=== PATIENT | female | born 1985 | race Hispanic/Latino ===

== ENCOUNTER 2017-02-02 08:15 | Emergency (ER) | payer SELFPAY ==
[~2017-02-02] VITALS: Ht 152.4 cm; Wt 58.1 kg
[~2017-02-02 08:15] MED LIST: CEPH500C PO
--- NOTE | 2017-02-02 09:00 | ED Back Pain ---
General Chief Complaint: Back Problems Stated Complaint: LOWER RIGHT BACK PAIN Nursing Triage Note: pt reports r lower back pain x 1 1/2 weeks. pt also reports she is about 6 weeks . Nursing Sepsis Screen: No Definite Risk Source of Information: Patient Exam Limitations: Language Barrier History of Present Illness Time Seen by Provider: 08:45 Initial Comments This 31-year-old female presents with right low back pain that she has had for about a week and a half. The patient's pain which is sharp in nature and moderate in severity radiates down the posterior aspect of her right leg. The patient however is primarily concerned about her most recent intrauterine . Her last menstrual period she relates was 5 weeks ago. She would like to ascertain that the baby is viable on ultrasound and have testing done. There's been no vaginal bleeding. The patient has not passed tissue. There has been no associated dysuria or frequency. Allergies and Home Medications Allergies Coded Allergies: No Known Drug Allergies (Unverified , 08/29/15) Home Medications No Active Prescriptions or Reported Meds Constitutional: No chills, No fever EENTM: no symptoms reported Respiratory: No cough Cardiovascular: No chest pain Gastrointestinal: No abdominal pain, No nausea, No vomiting Genitourinary: No dysuria, No frequency : Yes LMP: Dec 29, 2016 Musculoskeletal: see HPI, back pain (patient has back pain in the right S I area that radiates down the posterior aspect of her right leg.) Skin: No rash Psychiatric/Neurological: No Symptoms Reported Past Fzxfdet-[place] Hx Patient Social History Alcohol Use: Denies Use Recreational Drug Use: No Smoking Status: Never a Smoker Recent Foreign Travel: No Contact w/Someone Who Travel: No Recent Infectious Disease Expo: No Recent Hopitalizations: No Surgeries HX Surgeries: No Respiratory Hx Respiratory Disorders: No Cardiovascular Hx Cardiac Disorders: No Neurological Hx Neurological Disorders: No Reproductive System : Yes (pt unsure of due date. thinks 6 weeks preg) Hx : 3 Hx Para: 2 Hx Total # of Abortions (Spona: 0 Genitourinary Hx Genitourinary Disorders: No Gastrointestinal Hx Gastrointestinal Disorders: No Musculoskeletal Hx Musculoskeletal Disorders: No Endocrine Hx Endocrine Disorders: No HEENT HX ENT Disorders: No Cancer Hx Cancer: No Psychosocial Hx Psychiatric Problems: No Integumentary HX Skin/Integumentary Disorder: No Blood Transfusions Hx Blood Disorders: No Family Medical History Significant Family History: No Pertinent Family Hx Physical Exam Vital Signs Vital Sign - Last 12Hours 02/02/17 08:35 Temp 97.2 Pulse 72 Resp 18 B/P (MAP) 103/73 Pulse Ox 99 Capillary Refill : Less Than 3 Seconds General Appearance: No Apparent Distress, WD/WN HEENT: Normal ENT Inspection Neck: Normal Inspection Cardiovascular: Regular Rate, Rhythm, No Edema, Normal Peripheral Pulses Respiratory: Lungs Clear, Normal Breath Sounds Gastrointestinal: Normal Bowel Sounds, Non Tender, Soft Genital/Rectal: Normal Genital Exam, Normal Vaginal Exam, No Blood at Uretheral Meatus Back: No Vertebral Tenderness Extremity: Normal Inspection, Normal Range of Motion Neurologic/Psychiatric: Alert, Oriented x3, No Motor/Sensory Deficits Skin: Normal Color Progress/Results/Core Measures Results/Orders Lab Results Laboratory Tests Test 02/02/17 08:31 02/02/17 09:31 Range/Units Urine Color YELLOW Urine Clarity SLIGHTLY CLOUDY Urine pH 7 5-9 Urine Specific [place] 1.015 L 1.016-1.022 Urine Protein NEGATIVE NEGATIVE Urine Glucose (UA) NEGATIVE NEGATIVE Urine Ketones NEGATIVE NEGATIVE Urine Nitrite NEGATIVE NEGATIVE Urine Bilirubin NEGATIVE NEGATIVE Urine Urobilinogen NORMAL NORMAL MG/DL Urine Leukocyte Esterase 3+ H NEGATIVE Urine RBC (Auto) NEGATIVE NEGATIVE Urine RBC NONE /HPF Urine WBC 5-10 H /HPF Urine Squamous Epithelial Cells 25-50 H /HPF Urine Crystals NONE /LPF Urine Bacteria MODERATE H /HPF Urine Casts NONE /LPF Urine Mucus NEGATIVE /LPF Urine Culture Indicated YES Human Chorionic Gonadotropin, Quant 4291 H <5 MIU/ML My Orders Orders - MATTHEW PATHAK MD Ua Culture If Indicated (02/02/17 09:04) Abo Rh Type (02/02/17 09:04) Hcg,Quantitative (02/02/17 09:04) Acetaminophen Tablet (Tylenol Tablet) (02/02/17 09:15) Urine Culture (02/02/17 08:31) Us Ob<14 Wks Sngle W/Transvag (02/02/17 09:04) Medications Given in ED Current Medications Medications Dose Ordered Sig/Kylie Route Start Time Stop Time Status Last Admin Dose Admin Acetaminophen 1,000 mg ONCE ONCE PO 02/02/17 09:15 02/02/17 09:16 DC 02/02/17 09:14 1,000 MG Vital Signs/I&O Vital Sign - Last 12Hours 02/02/17 08:35 Temp 97.2 Pulse 72 Resp 18 B/P (MAP) 103/73 Pulse Ox 99 Blood Pressure Mean: 83 Progress Note : Time: 10:27 Progress Note The patient's pelvic exam was unremarkable. Her quantitative hCG was approximately 4500 consistent with her dates of 4-5 weeks. The patient's urinalysis was consistent with UTI. A culture has been initiated. I discussed the findings with the patient. We will initiate Macrobid for her urinary tract infection and ask her to follow-up with [facility] for further evaluation. She was invited to return the emergency Department if any further problems or questions. 1030 a.m. Patient's ultrasound was consistent with a 5 week intrauterine . Hemorrhagic cyst on the left was noted. Departure Impression Impression: Primary Impression: Back pain Qualified Codes: M54.41 - Lumbago with sciatica, right side Additional Impressions: Sciatica Qualified Codes: M54.31 - Sciatica, right side Intrauterine UTI (urinary tract infection) Qualified Codes: N30.00 - Acute cystitis without hematuria Disposition: 01 HOME, SELF-CARE Condition: Improved Departure-Patient Inst. Decision time for Depature: 10:39 Referrals: MARGARITA KABA MD Patient Instructions: Radiculopathy (DC) Add. Discharge Instructions: Tylenol for pain as prescribed. Close follow-up with Dr. Kaba. Come back for any problems or questions. Heat and/or ice to the low back for symptomatic relief. Macrobid for UTI. All discharge instructions reviewed with patient and/or family. Voiced understanding. Scripts No Active Prescriptions or Reported Meds MATTHEW PATHAK MD Feb 02, 2017 09:00
[2017-02-02] MEDS ORDERED: ACETAMINOPHEN 500 MG TAB (TYLENOL) PO ONE (09:15)
[2017-02-02 09:27] LABS: BILIRUBIN,URINE NEGATIVE (NEGATIVE); KETONES,URINE NEGATIVE (NEGATIVE); LEUKOCYTE ESTERASE ,URINE 3+ (NEGATIVE); NITRITE,URINE NEGATIVE (NEGATIVE); PH,URINE 7 (5-9); PROTEIN,URINE NEGATIVE (NEGATIVE); UROBILINOGEN,URINE NORMAL (NORMAL)
[2017-02-02 09:36] LABS: SQUAMOUS EPITHELIAL CELL,UR 25-50 /HPF
[2017-02-02 10:54] VITALS: BP 126/78
--- NOTE | 2017-02-02 11:13 | Diagnostic Imaging Report ---
INDICATION: Lower back pain. COMPARISON: None. DISCUSSION: Transabdominal and transvaginal sonographic evaluation of the pelvis was performed. The uterus is normal in echotexture and size. There is a small gestational sac with a small yolk sac present within the endometrial canal which correlates with a gestational age of 5 weeks 2 days. No pole or heart activity is yet identified. The ovaries appear normal in echotexture and size bilaterally with normal color Doppler blood flow. No abnormal adnexal mass or fluid. EDC by today's ultrasound is 10/03/2017. Mean sac diameter measures 0.67 cm. IMPRESSION: Early intrauterine at 5 weeks 2 days by sonographic measurements. No pole yet visualized. Recommend continued clinical correlation and sonographic followup as indicated. Dictated by: Dictated on workstation # [id number]
--- OUTSIDE RECORDS SUMMARY | 2017-03-08 05:40 | XMS REPORT | Continuity of Care Document ---
Author Author [facility] Organization [facility] Address Unknown Phone Unavailable Care Team Providers Care Rehabilitation Counselor Name Role Phone NO, LOCAL PHYSICIAN PP Unavailable Insurance Providers Payer Name Policy Number Subscriber Name Relationship Self Pay Aileen Malik 01 Self / Same As Patient Advance Directives Directive Response Recorded Date Advance Directives N 03/23/13 5:40pm Problems No Known Problems or Medical conditions. Social History History Response Recorded Date/Time Alcohol Use Denies Use 03/23/13 5:40pm Recreational Drug Use N 03/23/13 5:40pm Allergies, Adverse Reactions, Alerts Allergen Type Severity Reaction Last Updated No Known Drug Allergies 03/23/13 Medications Medication Dose Units Route Sig Qty Days Cephalexin Monohydrate (Cephalexin) 1 Each PO QID 7 Response Recorded Date/Time Status not known Unknown Results No Known Relevant Diagnostic Tests, Laboratory Data and/or Discharge Summary. Encounters Encounter Location Date/Time Registered Emergency [facility] 03/23/13 5:24pm
== END 2017-02-02 10:54 | disposition home or self-care (01) ==
LOC: EDUNIT# 08:15 → ER 08:21
DX: O23.41 Unspecified infection of urinary tract in pregnancy, first trimester (principal); Z3A.01 Less than 8 weeks gestation of pregnancy; M54.41 Lumbago with sciatica, right side
CPT/HCPCS: 36415; 76801; 76817; 81000; 84702; 86900; 86901; 87070; 87088; 87210; 87491; 87591; 99284

== ENCOUNTER → 2017-04-02 | Outpatient (CLI) | payer OTHER ==
--- NOTE | 2017-04-02 19:48 | Diagnostic Imaging Report ---
PROCEDURE: US OB SINGLE FETUS <14 WKS. TECHNIQUE: Multiple real-time grayscale images were obtained over the gravid uterus in various projections. INDICATION: Dating. FINDINGS: There is an intrauterine with a membreno fetus. The heart rate is 161 beats per minutes. Placental implantation is anterior. The growth parameters are: Biparietal diameter: 14 weeks and 4 days. Head circumference: 14 weeks and 3 days. Abdominal circumference: 14 weeks and 0 day. Femur length: 13 weeks and 2 days. These average at: 14 weeks and 1 day. JAX is 09/30/2017. IMPRESSION: Live single intrauterine . JAX is 09/30/2017 Dictated by: Dictated on workstation # [id number]
== END ==
LOC: RAD 12:21
PROVIDERS: ATTEND Family Medicine
DX: Z34.82 Encounter for supervision of other normal pregnancy, second trimester (principal); Z3A.14 14 weeks gestation of pregnancy
CPT/HCPCS: 76801

== ENCOUNTER → 2017-05-21 | Outpatient (CLI) | payer OTHER ==
--- NOTE | 2017-05-21 09:58 | Diagnostic Imaging Report ---
INDICATION: survey. TECHNIQUE: Multiple real-time grayscale images were obtained over the gravid uterus. COMPARISON: None. FINDINGS: There is a single living intrauterine in cephalic presentation. There is normal volume of amniotic fluid. Placenta is anterior. There is no previa. The heart rate is 160 beats per minute. The anatomical survey is unremarkable. The biometry correlates with gestational age of 20 weeks 6 days. Biometrical measurements are as follows: Biparietal 5.0 cm, age 21 weeks 1 days. Head circumference 17.3 cm, age 19 weeks 6 days. Abdominal circumference 16.2 cm, age 21 weeks 2 days. Femur length 3.5 cm, age 21 weeks 1 days. Sonographic estimate age: 20 weeks 6 days. Sonographic estimated date of delivery: 10/02/17. Estimated Weight: 396 gm (+/- 58 gm). LMP percentile: 39%. heart rate: 160 beats per minute. number: 1 of 1. IMPRESSION: Single living intrauterine with sonographically estimated gestational age of 20 weeks 6 days and estimated date of confinement of October 02, 2017. Dictated by: Dictated on workstation # [id number]
== END ==
LOC: RAD 08:43
PROVIDERS: ATTEND Family Medicine
DX: Z36 Encounter for antenatal screening of mother (principal); Z3A.20 20 weeks gestation of pregnancy
CPT/HCPCS: 76805

== ENCOUNTER 2017-10-01 12:34 | Outpatient (CLI) | payer OTHER ==
[~2017-10-01] VITALS: Ht 147.3 cm; Wt 74.4 kg
[2017-10-01 12:38] VITALS: BP 120/74
[2017-10-01 13:26] LABS: BILIRUBIN,URINE NEGATIVE (NEGATIVE); KETONES,URINE NEGATIVE (NEGATIVE); LEUKOCYTE ESTERASE ,URINE 1+ (NEGATIVE); NITRITE,URINE NEGATIVE (NEGATIVE); PH,URINE 7 (5-9); PROTEIN,URINE NEGATIVE (NEGATIVE); UROBILINOGEN,URINE NORMAL (NORMAL)
[2017-10-01] MEDS ORDERED: PREN1TAB86 PO (13:28)
[2017-10-01] MEDS ORDERED: INFLUENZA TRIvalent 2017-2018 0.5 ML/45 MCG SYR IM ONE (13:45)
[2017-10-01 14:00] VITALS: BP 114/72
[2017-10-01 15:30] VITALS: BP 114/72
--- NOTE | 2017-10-02 11:20 | Physician Query-Final Dx ---
CHLOE DESOUZA 10/02/17 1120: Clinic Account Progress/Dx Physician Query: Please give diagnosis Date of Service Oct 01, 2017 at 12:34 DARRICK CHAVEZ DO 10/14/17 1527: Clinic Account Progress/Dx DIAGNOSIS: Diagnosis 40 week GA vaginal pressure, vaginal discharge CHLOE DESOUZA Oct 02, 2017 11:20 DARRICK CHAVEZ DO Oct 14, 2017 15:27
[2017-10-04] MEDS ORDERED: HYDR-3812 PO (10:59)
[2017-10-04] MEDS ORDERED: FERR-74 PO (10:59)
[2017-10-04] MEDS ORDERED: DOCU100C37 PO (10:59)
[2017-10-04] MEDS ORDERED: IBUP-1773 PO (10:59)
[2017-10-04] MEDS ORDERED: CEFD300C3 PO (15:53)
== END 2017-10-01 15:30 | disposition home or self-care (01) ==
LOC: WSo 12:34 → LDRP 12:36 → WSo 15:30
PROVIDERS: ATTEND Family Medicine
DX: O99.89 Other specified diseases and conditions complicating pregnancy, childbirth and the puerperium (principal); N89.8 Other specified noninflammatory disorders of vagina; Z3A.40 40 weeks gestation of pregnancy; Z23 Encounter for immunization
CPT/HCPCS: 81000; 90471; 99214

== ENCOUNTER 2017-10-02 17:20 | Inpatient (IN) | payer SELFPAY ==
[2017-10-02] VITALS (27 sets, daily range): BP systolic 105–145; BP diastolic 56–101
[~2017-10-02] VITALS: Ht 147.3 cm; Wt 74.4 kg
[~2017-10-02 17:20] MED LIST changes: +PREN1TAB86 PO
[2017-10-02] MEDS ORDERED: MINERAL OIL CONCENTRATE 99.9% 15 ML UDC TOP SCH (17:45)
[2017-10-02] MEDS ORDERED: D5 LR IV SOLUTION 1,000 ML IV SCH (17:45)
[2017-10-02] MEDS ORDERED: D5 LR IV SOLUTION 1,000 ML IV ONE (17:51)
[2017-10-02 18:06] LABS: BILIRUBIN,URINE NEGATIVE (NEGATIVE); KETONES,URINE NEGATIVE (NEGATIVE); LEUKOCYTE ESTERASE ,URINE 3+ (NEGATIVE); NITRITE,URINE NEGATIVE (NEGATIVE); PH,URINE 6.5 (5-9); PROTEIN,URINE 2+ (NEGATIVE); UROBILINOGEN,URINE NORMAL (NORMAL)
[2017-10-02 18:17] LABS: SQUAMOUS EPITHELIAL CELL,UR 25-50 /HPF; WBC,URINE 50-100 /HPF
[2017-10-02 18:21] LABS: BASOPHILS % (AUTO) 0 % (0-10); EOSINOPHILS # (AUTO) 0.1 10^3/uL (0.0-0.3); EOSINOPHILS % (AUTO) 1 % (0-10); LYMPHOCYTES # (AUTO) 1.5 X 10^3 (1.0-4.0); LYMPHOCYTES % (AUTO) 11 % (12-44); MEAN CORPUSCULAR HEMOGLOBIN 22 PG (25-34); MEAN CORPUSCULAR HGB CONC 32 G/DL (32-36); MEAN CORPUSCULAR VOLUME 71 FL (80-99); MONOCYTES # (AUTO) 1.3 X 10^3 (0.0-1.0); MONOCYTES % (AUTO) 10 % (0-12); NEUTROPHILS # (AUTO) 10.2 X 10^3 (1.8-7.8); NEUTROPHILS % (AUTO) 78 % (42-75); PLATELET COUNT 407 10^3/uL (130-400); RED BLOOD COUNT 4.04 10^6/uL (4.35-5.85); RED CELL DISTRIBUTION WIDTH 17.7 % (10.0-14.5)
--- NOTE | 2017-10-02 20:17 | History & Physical-OB ---
OB - Chief Complaint & HPI Date/Time Date of Admission: Date of Admission: Oct 02, 2017 at 5:48 pm Time Seen by Provider: 19:50 Chief Complaint/History OB-Reason for Admission/Chief: Onset of Labor Hx : 5 Hx Para: 2021 Expected Date of Delivery: Sep 30, 2016 Gestational Age in Weeks: 40 Gestational Age in Days: 3 History of Labs O negative, antibody negative, RNI, GC/Chlamydia neg. HIV/HepB/RPR NR. 1 hour glucola normal. GBS neg. Allergies and Home Medications Allergies Coded Allergies: No Known Drug Allergies (Unverified , 08/29/15) Home Medications Vit W-Ca,Fe,FA(<1 mg) 1 Each Tablet, 1 EACH PO DAILY, (Reported) OB - History Hx of Present Care: Yes Ultrasounds: Normal mid trimester US Obstetrical Complications: None Medical Complications: None Information Induced Hypertension: No Maternal Gestational Diabetes: No Hemorrhage: No Obstetrical History Hx : 5 Hx Para: 2 Hx # Term Pregnancies: 2 Hx # Pregnancies: 0 Number of Living Children: 2 Hx Total # of Abortions (Spona: 2 Hx Multiple Gestation: No Hx Ectopic : No Hx Stillbirth: No Hx Complication: No Hx Induced Hypertens: No Hx Maternal Gestational Diabet: No Hx Hemorrhage: No Delivery History Hx Dystocia: No Hx Forceps Assisted Delivery: No Hx Vacuum Extraction Assisted: No Hx Placenta Abnormality: No Hx Distress: No Hx Large For Gestational Age I: No Hx Small for Gestational Age I: No Hx Section: No Hx Vaginal Delivery Post C-Sec: No Hx Blood Disorders: No Adverse Rxn to Tranfusion: No Patient Past Medical History PMHx: Denies Social History/Family History HIV/AIDS: No Recent Infectious Disease Expo: No Sexually Transmitted Disease: No Alcohol Use: Denies Use Recreational Drug Use: No Smoking Cessation: Never smoker Immunizations Tetanus Booster (TDap): Less than 5yrs (07/28/17) Date of Influenza Vaccine: Sep 29, 2017 Rubella: not immune RPR/VDRL: Negative GBS Status: Negative HBsAG: Negative OB - Admission Exam Physical Exam Vitals: Vital Signs 10/02/17 10/02/17 17:21 19:15 Temp 98.4 Pulse 89 Resp 18 B/P (MAP) 125/79 (94) O2 Delivery Room Air HEENT: NCAT Abdomen: Gravid Extremities: Normal Cervical Dilatation: 7cm Effacement: Other (90) Station: 0 Membranes: Intact Accelerations: No Accelerations Decelerations: No Decelerations Director Of Recreation Therapy Variability: Minimal (3-5) Contractions on Admission: < 5 Minutes Apart Date/Time Contractions Began;: 10/01 around noon Intensity: Firm Labs Laboratory Tests Test 10/02/17 17:50 10/02/17 18:05 Range/Units Urine Color YELLOW Urine Clarity SLIGHTLY CLOUDY Urine pH 6.5 5-9 Urine Specific [place] 1.015 L 1.016-1.022 Urine Protein 2+ H NEGATIVE Urine Glucose (UA) NEGATIVE NEGATIVE Urine Ketones NEGATIVE NEGATIVE Urine Nitrite NEGATIVE NEGATIVE Urine Bilirubin NEGATIVE NEGATIVE Urine Urobilinogen NORMAL NORMAL MG/DL Urine Leukocyte Esterase 3+ H NEGATIVE Urine RBC (Auto) 2+ H NEGATIVE Urine RBC 5-10 H /HPF Urine WBC 50-100 H /HPF Urine Squamous Epithelial Cells 25-50 H /HPF Urine Crystals NONE /LPF Urine Bacteria MODERATE H /HPF Urine Casts NONE /LPF Urine Mucus NEGATIVE /LPF Urine Culture Indicated YES White Blood Count 13.0 H 4.3-11.0 10^3/uL Red Blood Count 4.04 L 4.35-5.85 10^6/uL Hemoglobin 9.0 L 11.5-16.0 G/DL Hematocrit 29 L 35-52 % Mean Corpuscular Volume 71 L 80-99 FL Mean Corpuscular Hemoglobin 22 L 25-34 PG Mean Corpuscular Hemoglobin Concent 32 32-36 G/DL Red Cell Distribution Width 17.7 H 10.0-14.5 % Platelet Count 407 H 130-400 10^3/uL Mean Platelet Volume 10.0 7.4-10.4 FL Neutrophils (%) (Auto) 78 H 42-75 % Lymphocytes (%) (Auto) 11 L 12-44 % Monocytes (%) (Auto) 10 0-12 % Eosinophils (%) (Auto) 1 0-10 % Basophils (%) (Auto) 0 0-10 % Neutrophils # (Auto) 10.2 H 1.8-7.8 X 10^3 Lymphocytes # (Auto) 1.5 1.0-4.0 X 10^3 Monocytes # (Auto) 1.3 H 0.0-1.0 X 10^3 Eosinophils # (Auto) 0.1 0.0-0.3 10^3/uL Basophils # (Auto) 0.0 0.0-0.1 10^3/uL OB - Assessment/Plan/Diagnosis Assessment Assessment: active labor Plan Plan: Expectant Management Other Plan heart rate tracing category II- minimal variability with a few periods of essentially absent variability but also some periods with moderate variability. No accelerations, but also no decelerations. Borderline tachycardia with no maternal fever. Monitor closely, discussed with patient. Copy Copies To 1: HERRERA CORNEJO MD, BETHANY N MD Oct 02, 2017 8:17 pm
[2017-10-02] MEDS ORDERED: SUFENTA 0.6MCG/ML BUPIVA 0.125 100 ML ONE (20:40)
[2017-10-02] MEDS ORDERED: fentaNYL INJECTION 100 MCG/2 ML AMP ONE (20:47)
[2017-10-02] MEDS ORDERED: BUPIVACAINE 0.25% 30 ML (SENSORCAINE) VIAL ONE (21:19)
[2017-10-02] MEDS ORDERED: LIDOCAINE PF 2% 5 ML (XYLOCAINE) VIAL ONE (21:19)
[2017-10-02] MEDS ORDERED: MEPERIDINE (DEMEROL) INJ 50 MG/ML IVP PRN (21:30)
[2017-10-02] MEDS ORDERED: morphine INJ 10 MG/ML 1ML (SYR OR VIAL) IVP PRN (21:30)
--- NOTE | 2017-10-02 21:33 | Labor Progress Note ---
Labor Progress Note Labor Progress Note Date Seen by Provider: Oct 02, 2017 Time Seen by Provider: 21:15 Subjective: Pt starting to feel some pain relief from epidural. Objective: Cervical exam: /0 Consistency: soft Position: mid Presentation: vertex heart tones: 160 beats per minute, minimal variability, no decels Assessment/Plan: Aileen Fraga is a (32 /Para 5 / 2,Gestational Age (wks)40 here in spontaneous labor. TOCO AROM done with return of meconium stained fluid at 2019, FSE placed for closer monitoring due to minimal variability Anesthesia: epidural Anticipate vaginal delivery. Vitals - Labs Vital Signs - I&O Vital Signs Date Time Temp Pulse Resp B/P (MAP) Pulse Ox O2 Delivery O2 Flow Rate FiO2 10/02/17 19:15 89 18 125/79 (94) Room Air 10/02/17 17:21 98.4 102 20 122/79 (93) Room Air Labs Laboratory Tests 10/02/17 17:50: Urine Color YELLOW, Urine Clarity SLIGHTLY CLOUDY, Urine pH 6.5, Urine Specific [place] 1.015L, Urine Protein 2+H, Urine Glucose (UA) NEGATIVE, Urine Ketones NEGATIVE, Urine Nitrite NEGATIVE, Urine Bilirubin NEGATIVE, Urine Urobilinogen NORMAL, Urine Leukocyte Esterase 3+H, Urine RBC (Auto) 2+H, Urine RBC 5-10H, Urine WBC 50-100H, Urine Squamous Epithelial Cells 25-50H, Urine Crystals NONE, Urine Bacteria MODERATEH, Urine Casts NONE, Urine Mucus NEGATIVE, Urine Culture Indicated YES 10/02/17 18:05: White Blood Count 13.0H, Red Blood Count 4.04L, Hemoglobin 9.0L, Hematocrit 29L , Mean Corpuscular Volume 71L, Mean Corpuscular Hemoglobin 22L, Mean Corpuscular Hemoglobin Concent 32, Red Cell Distribution Width 17.7H, Platelet Count 407H, Mean Platelet Volume 10.0, Neutrophils (%) (Auto) 78H, Lymphocytes ( %) (Auto) 11L, Monocytes (%) (Auto) 10, Eosinophils (%) (Auto) 1, Basophils (%) (Auto) 0, Neutrophils # (Auto) 10.2H, Lymphocytes # (Auto) 1.5, Monocytes # ( Auto) 1.3H, Eosinophils # (Auto) 0.1, Basophils # (Auto) 0.0 MOMO WHITTAKER MD Oct 02, 2017 9:33 pm
[2017-10-02] MEDS ORDERED: CATHETER FLUSH 10 ML SYR IV SCH (22:00)
[2017-10-02] MEDS ORDERED: OXYTOCIN/NORMAL SALINE 500 ML IV ONE (22:32)
[2017-10-03] VITALS (20 sets, daily range): BP systolic 107–147; BP diastolic 64–88
[2017-10-03] MEDS: OXYTOCIN/NORMAL SALINE 500 ML IV SCH ×2 (00:20→02:48)
[2017-10-03] MEDS ORDERED: fentaNYL INJECTION 100 MCG/2 ML AMP IVP ONE (02:30)
[2017-10-03] MEDS ORDERED: fentaNYL INJECTION 100 MCG/2 ML AMP ONE (02:30)
--- NOTE | 2017-10-03 03:12 | OB Labor & Delivery Record ---
Vag Delivery Note Vag Delivery Note Date of Delivery: 10/03/17 Preoperative Diagnosis: Aileen Fraga is a (31 /Para 5 / 2, Gestational Age (wks)40with 3 days Postoperative Diagnosis: Same Surgeon: MOMO WHITTAKER Anesthesia: Epidural Delivery Type: spontaneous vaginal delivery Findings: Viable female infant, apgars 8/9, weight 7#0 Lacerations: first degree perineal Intact placenta with 3 vessel cord. No nuchal cord, body cord or shoulder dystocia Estimated Blood Loss: 400 ml Complications: None Condition: Stable Description of Procedure: The patient is a 32 yo G5 now P3023 who presented in active labor at 40w2d. She was admitted and informed consent was obtained. Her labor course was remarkable for protracted course, meconium stained fluid, heart rate with poor variability. She progressed to complete dilatation and began to push. She was then set up for delivery. The infant's head was delivered atraumatically in the YANELI position. The shoulders and remainder of the 's body were then delivered without difficulty. Upon delivery, the infant was vigorous and was placed on maternal abdomen. After a brief delay the cord was doubly clamped and cut and the infant was handed off to the pediatric staff. After 30 minutes and administration of pitocin and continuous traction on placenta, it had not delivered spontaneously. With epidural still in place, a dose of fentanyl 25 mcg IV was given and manual extraction of placenta performed with successful delivery of an intact placenta with 3-vessel cord via [place] and there was found to be minimal bleeding.~ Vigorous fundal massage was performed and the fundus was found to be firm. IV oxytocin was given. Examination of the vagina and perineum revealed a first degree perineal laceration repaired with one simple interrupted 3-0 rapide. Following the repair , sponge, instrument and needle counts were correct. A dose of ampicillin and gentamicin were ordered for prophylaxis due to manual extraction of placenta. Mom and baby were both in stable condition in the labor suite. Vitals - Labs Vital Signs - I&O Vital Signs Date Time Temp Pulse Resp B/P (MAP) Pulse Ox O2 Delivery O2 Flow Rate FiO2 10/02/17 20:00 97.5 92 18 120/72 (88) Room Air 10/02/17 19:15 89 18 125/79 (94) Room Air 10/02/17 17:21 98.4 102 20 122/79 (93) Room Air Labs Laboratory Tests 10/02/17 17:50: Urine Color YELLOW, Urine Clarity SLIGHTLY CLOUDY, Urine pH 6.5, Urine Specific [place] 1.015L, Urine Protein 2+H, Urine Glucose (UA) NEGATIVE, Urine Ketones NEGATIVE, Urine Nitrite NEGATIVE, Urine Bilirubin NEGATIVE, Urine Urobilinogen NORMAL, Urine Leukocyte Esterase 3+H, Urine RBC (Auto) 2+H, Urine RBC 5-10H, Urine WBC 50-100H, Urine Squamous Epithelial Cells 25-50H, Urine Crystals NONE, Urine Bacteria MODERATEH, Urine Casts NONE, Urine Mucus NEGATIVE, Urine Culture Indicated YES 10/02/17 18:05: White Blood Count 13.0H, Red Blood Count 4.04L, Hemoglobin 9.0L, Hematocrit 29L , Mean Corpuscular Volume 71L, Mean Corpuscular Hemoglobin 22L, Mean Corpuscular Hemoglobin Concent 32, Red Cell Distribution Width 17.7H, Platelet Count 407H, Mean Platelet Volume 10.0, Neutrophils (%) (Auto) 78H, Lymphocytes ( %) (Auto) 11L, Monocytes (%) (Auto) 10, Eosinophils (%) (Auto) 1, Basophils (%) (Auto) 0, Neutrophils # (Auto) 10.2H, Lymphocytes # (Auto) 1.5, Monocytes # ( Auto) 1.3H, Eosinophils # (Auto) 0.1, Basophils # (Auto) 0.0 MOMO WHITTAKER MD Oct 03, 2017 3:11 am
[2017-10-03] MEDS ORDERED: GENTAMICIN INJ (FOR COMPOUND) 120 MG in NS (IVPB) 100 ML IV ONE (03:15)
[2017-10-03] MEDS ORDERED: AMPICILLIN INJECTION 2,000 MG in NS (IVPB) 50 ML IV ONE (03:15)
[2017-10-03] MEDS ORDERED: GENTAMICIN 40 MG/ML 2 ML INJ SDV ONE (03:21)
[2017-10-03] MEDS ORDERED: NS (IVPB) 100 ML ONE (03:47)
[2017-10-03] MEDS ORDERED: OXYTOCIN/NORMAL SALINE 500 ML IV SCH (04:07)
[2017-10-03] MEDS ORDERED: TETANUS,DIPTH,PERTUSS P/F (BOOSTRIX) 0.5 ML VIAL IM ONE (04:15)
[2017-10-03] MEDS ORDERED: MEASLES,MUMPS,RUBELLA 1 EA INJ SQ ONE (04:15)
[2017-10-03] MEDS ORDERED: WITCH HAZEL(TUCKS) 40 EA JAR TOP PRN (04:15)
[2017-10-03] MEDS ORDERED: BENZOCAINE/MENTHOL (DERMOPLAST) 56 ML CAN TP PRN (04:15)
[2017-10-03] MEDS: IBUPROFEN 600 MG (MOTRIN) TAB PO SCH ×4 (05:09→23:58)
[2017-10-03 06:55] LABS: BASOPHILS % (AUTO) 0 % (0-10); EOSINOPHILS % (AUTO) 0 % (0-10); LYMPHOCYTES # (AUTO) 1.4 X 10^3 (1.0-4.0); LYMPHOCYTES % (AUTO) 6 % (12-44); MEAN CORPUSCULAR HEMOGLOBIN 22 PG (25-34); MEAN CORPUSCULAR HGB CONC 31 G/DL (32-36); MEAN CORPUSCULAR VOLUME 72 FL (80-99); MEAN PLATELET VOLUME 9.7 FL (7.4-10.4); MONOCYTES # (AUTO) 2.1 X 10^3 (0.0-1.0); MONOCYTES % (AUTO) 9 % (0-12); NEUTROPHILS # (AUTO) 20.6 X 10^3 (1.8-7.8); NEUTROPHILS % (AUTO) 85 % (42-75); PLATELET COUNT 347 10^3/uL (130-400); RED BLOOD COUNT 3.17 10^6/uL (4.35-5.85); RED CELL DISTRIBUTION WIDTH 17.5 % (10.0-14.5); WHITE BLOOD COUNT 24.2 10^3/uL (4.3-11.0)
[2017-10-03] MEDS: DOCUSATE SODIUM 100 MG (COLACE) CAP PO SCH ×2 (09:42→22:08)
[2017-10-03] MEDS: FERROUS SULF 325 MG (IRON) TAB PO SCH (09:42)
[2017-10-03] MEDS: PRENATAL VITAMIN 1 EA TAB PO SCH (09:42)
[2017-10-03] MEDS: HYDROcodone/APAP 5 MG/325 MG (LORTAB) TAB PO PRN ×3 (09:43→23:59)
--- NOTE | 2017-10-03 10:52 | Anesthesia-Regional Post-Op ---
Regional Patient Condition Mental Status: Alert, Oriented x3 Circulation: Same as Pre-Op Headache: Absent Sensation: Full Recovery Motor Block: Absent Post Op Complications Complications None Follow Up Care/Instructions Patient Instructions None needed. Anesthesia/Patient Condition Patient is doing well, no complaints, stable vital signs, no apparent adverse anesthesia problems. No complications reported per nursing. STEVE WALTER CRNA Oct 03, 2017 10:52
[2017-10-04 02:23] VITALS: BP 105/70
[2017-10-04] MEDS: CATHETER FLUSH 10 ML SYR IV SCH ×2 (02:26→06:18)
[2017-10-04] MEDS: HYDROcodone/APAP 5 MG/325 MG (LORTAB) TAB PO PRN (06:18)
[2017-10-04] MEDS: IBUPROFEN 600 MG (MOTRIN) TAB PO SCH ×2 (06:18→12:57)
[2017-10-04 06:43] LABS: BASOPHILS % (AUTO) 0 % (0-10); EOSINOPHILS # (AUTO) 0.2 10^3/uL (0.0-0.3); EOSINOPHILS % (AUTO) 1 % (0-10); LYMPHOCYTES # (AUTO) 2.9 X 10^3 (1.0-4.0); LYMPHOCYTES % (AUTO) 18 % (12-44); MEAN CORPUSCULAR HEMOGLOBIN 22 PG (25-34); MEAN CORPUSCULAR HGB CONC 30 G/DL (32-36); MEAN CORPUSCULAR VOLUME 72 FL (80-99); MEAN PLATELET VOLUME 9.7 FL (7.4-10.4); MONOCYTES # (AUTO) 1.1 X 10^3 (0.0-1.0); MONOCYTES % (AUTO) 7 % (0-12); NEUTROPHILS # (AUTO) 11.9 X 10^3 (1.8-7.8); NEUTROPHILS % (AUTO) 74 % (42-75); PLATELET COUNT 349 10^3/uL (130-400); RED CELL DISTRIBUTION WIDTH 17.8 % (10.0-14.5); WHITE BLOOD COUNT 16.1 10^3/uL (4.3-11.0)
[2017-10-04] MEDS: DOCUSATE SODIUM 100 MG (COLACE) CAP PO SCH (09:39)
[2017-10-04] MEDS: PRENATAL VITAMIN 1 EA TAB PO SCH (09:39)
[2017-10-04] MEDS: FERROUS SULF 325 MG (IRON) TAB PO SCH (09:39)
[2017-10-04 09:56] VITALS: BP 104/68
[2017-10-04] MEDS ORDERED: HYDR-3812 PO (10:59)
[2017-10-04] MEDS ORDERED: FERR-74 PO (10:59)
[2017-10-04] MEDS ORDERED: IBUP-1773 PO (10:59)
[2017-10-04] MEDS ORDERED: DOCU100C37 PO (10:59)
[2017-10-04] MEDS ORDERED: CEFD300C3 PO (15:53)
--- NOTE | 2017-10-04 15:59 | Discharge Summary ---
Diagnosis/Chief Complaint Date of Admission Oct 02, 2017 at 5:48 pm Date of Discharge Oct 04, 2017 Admission Diagnosis Admission Diagnosis Active labor at 40 weeks gestation O negative blood type Rubella non-immune Discharge Diagnosis s/p Spontaneous vaginal delivery Manual extraction of placenta anemia Proteus UTI O negative blood type Rubella non-immune Chief Complaint/HPI Chief Complaint/HPI 32 yo G5 now P3023 presented to L&D at 40 weeks gestation with regular contractions, found to be in active labor. Discharge Summary-Simple/Stand Procedures Spontaneous vaginal delivery with first degree perineal laceration repair Manual extraction of placenta Discharge Physical Examination Allergies: Coded Allergies: No Known Drug Allergies (Unverified , 08/29/15) Vitals & I&Os Vital Sign - Last 12Hours Date Time Temp Pulse Resp B/P (MAP) Pulse Ox O2 Delivery O2 Flow Rate FiO2 10/04/17 09:56 98.0 85 18 104/68 (80) 98 Room Air General Appearance: Alert, No Acute Distress Respiratory: Clear to Auscultation, Normal Air Movement Cardiovascular: Regular Rate, No Murmurs Abdominal: Other (fundus firm below umbilicus, appropriatley tender) Extremities: No Edema Neuro: Normal Speech Psych/Mental Status: Mental Status NL Hospital Course 32 yo G5 now P3023 presented to L&D at 40 weeks gestation with regular contractions, found to be in active labor. Labor complicated by protracted course and poor heart rate variability with no decelerations. Ultimately she did deliver vaginally with first degree perineal laceration repair, and also had retained placenta at 30 minutes, so manual extraction of placenta was required, amp/gent given prophylactically. Initial hemoglobin was 9.0 and dropped to 6.6 , she was minimally symptomatic with slight dizziness which was improving, so hemoglobin rechecked and found to be 7.3. Discharged with iron BID. Blood type O negative, rhogam given. Rubella non-immune, MMR given. Possible UTI with <10,000 proteus but UA convincing for UTI so was given 3 days of Omnicef on d/c. Labs Laboratory Tests Test 10/02/17 17:50 10/02/17 18:05 10/03/17 06:24 10/04/17 05:56 Range/Units Urine Color YELLOW Urine Clarity SLIGHTLY CLOUDY Urine pH 6.5 5-9 Urine Specific [place] 1.015 L 1.016-1.022 Urine Protein 2+ H NEGATIVE Urine Glucose (UA) NEGATIVE NEGATIVE Urine Ketones NEGATIVE NEGATIVE Urine Nitrite NEGATIVE NEGATIVE Urine Bilirubin NEGATIVE NEGATIVE Urine Urobilinogen NORMAL NORMAL MG/DL Urine Leukocyte Esterase 3+ H NEGATIVE Urine RBC (Auto) 2+ H NEGATIVE Urine RBC 5-10 H /HPF Urine WBC 50-100 H /HPF Urine Squamous Epithelial Cells 25-50 H /HPF Urine Crystals NONE /LPF Urine Bacteria MODERATE H /HPF Urine Casts NONE /LPF Urine Mucus NEGATIVE /LPF Urine Culture Indicated YES White Blood Count 13.0 H 24.2 H 16.1 H 4.3-11.0 10^3/uL Red Blood Count 4.04 L 3.17 L 3.00 L 4.35-5.85 10^6/uL Hemoglobin 9.0 L 7.0 L 6.6 *L 11.5-16.0 G/DL Hematocrit 29 L 23 L 22 L 35-52 % Mean Corpuscular Volume 71 L 72 L 72 L 80-99 FL Mean Corpuscular Hemoglobin 22 L 22 L 22 L 25-34 PG Mean Corpuscular Hemoglobin Concent 32 31 L 30 L 32-36 G/DL Red Cell Distribution Width 17.7 H 17.5 H 17.8 H 10.0-14.5 % Platelet Count 407 H 347 349 130-400 10^3/uL Mean Platelet Volume 10.0 9.7 9.7 7.4-10.4 FL Neutrophils (%) (Auto) 78 H 85 H 74 42-75 % Lymphocytes (%) (Auto) 11 L 6 L 18 12-44 % Monocytes (%) (Auto) 10 9 7 0-12 % Eosinophils (%) (Auto) 1 0 1 0-10 % Basophils (%) (Auto) 0 0 0 0-10 % Neutrophils # (Auto) 10.2 H 20.6 H 11.9 H 1.8-7.8 X 10^3 Lymphocytes # (Auto) 1.5 1.4 2.9 1.0-4.0 X 10^3 Monocytes # (Auto) 1.3 H 2.1 H 1.1 H 0.0-1.0 X 10^3 Eosinophils # (Auto) 0.1 0.0 0.2 0.0-0.3 10^3/uL Basophils # (Auto) 0.0 0.0 0.0 0.0-0.1 10^3/uL Test 10/04/17 10:40 Range/Units Hemoglobin 7.3 L 11.5-16.0 G/DL Discharge Instructions to patient/family Please see electronic discharge instructions given to patient. Discharge Medications Reviewed and agree with Discharge Medication list on patient's Discharge Instruction sheet Clinical Quality Measures DVT/VTE Risk/Contraindication: Risk Factor Score Per Nursin RFS Level Per Nursing on Admit: 1=Low/No VTE PPX Copy Copies To 1: HERRERA CORNEJO MD, BETHANY N MD Oct 04, 2017 3:59 pm
--- NOTE | 2017-10-04 16:03 | Discharge Instructions ---
Discharge Inst-Women's Serv Depart Medications New, Converted or Re-Newed RX: Transmitted to Pharmacy Final Diagnosis S/P spontaneous vaginal delivery with manual extraction of placenta UTI New Medications: Cefdinir (Cefdinir) 300 Mg Capsule 300 MG PO BID, #6 CAP 0 Refills Hydrocodone/Acetaminophen (Hydrocodon -Acetaminophen 5-325) 1 Each Tablet 1 EACH PO Q6H PRN for PAIN-MODERATE TO SEVERE, #15 TAB 0 Refills Docusate Sodium (Docusate Sodium) 100 Mg Capsule 100 MG PO BID PRN for CONSTIPATION-1ST LINE, #60 CAP 0 Refills Ferrous Sulfate (Ferrous Sulfate) 325 Mg Tablet 325 MG PO BID, #60 TAB 0 Refills Ibuprofen (Ibuprofen) 600 Mg Tablet 600 MG PO Q6H PRN for PAIN-MILD TO MODERATE, #60 TAB 0 Refills Continued Medications: Vit W-Ca,Fe,FA(<1 mg) ( Vitamins) 1 Each Tablet 1 EACH PO DAILY, TAB Follow Up/Instructions Goal/Follow Up: Follow up with Dr. Montemayor in 6 weeks Activity Activity: Activity as Tolerated (avoid strenuous activity x 6 weeks) Driving Instructions: You May Drive (do not drive while on sedating pain medication) Nothing Inside Vagina: No Douching, No [place], No Tampons Diet Discharge Diet: Regular Diet Symptoms to Report to : Bleeding Excessive, Pain Increased, Fever Over 101 Degrees F, Pain/Pressure in Chest, Heart Beat Irreg/Pounding, Pain/Pressure in Jaw, Cramps in Feet or Legs, Lightheadedness, Vaginal Discharge Foul, Dizziness/ Fainting, Shortness of Breath For Any Problems or Questions: Contact Your Physician Copies To 1: HERRERA MONTEMAYOR MD, BETHANY N MD Oct 04, 2017 11:01 am
== END 2017-10-04 17:45 | disposition home or self-care (01) | DRG 767 ==
LOC: WSo 17:20 → LDRP 17:20 → WSo 17:48 → LDRP 17:48
PROVIDERS: ADMIT Family Medicine; ATTEND Family Medicine
PROC: 10E0XZZ Delivery of Products of Conception, External Approach (ICD-10-PCS; principal; 2017-10-03)
PROC: 0HQ9XZZ Repair Perineum Skin, External Approach (ICD-10-PCS; 2017-10-03)
PROC: 10D17Z9 Manual Extraction of Products of Conception, Retained, Via Natural or Artificial Opening (ICD-10-PCS; 2017-10-03)
DX: O70.0 First degree perineal laceration during delivery (principal); O73.1 Retained portions of placenta and membranes, without hemorrhage; O90.81 Anemia of the puerperium; D64.9 Anemia, unspecified; O23.43 Unspecified infection of urinary tract in pregnancy, third trimester; B96.4 Proteus (mirabilis) (morganii) as the cause of diseases classified elsewhere; Z37.0 Single live birth; Z3A.40 40 weeks gestation of pregnancy
CPT/HCPCS: 36415; 81000; 83033; 85018; 85025; 86850; 86900; 86901; 87088; 99212

== ENCOUNTER 2018-07-12 08:11 | Emergency (ER) | payer OTHER ==
[~2018-07-12] VITALS: Ht 152.4 cm; Wt 57.2 kg
[~2018-07-12 08:11] MED LIST changes: +ACHD5005 PO; +CEFD300C3 PO; +DOCU100C37 PO; +FERR325T18 PO; +IBUP-1773 PO
--- NOTE | 2018-07-12 08:31 | ED GU-Female ---
General Stated Complaint: 15 WKS ;BLEEDING Source: patient Exam Limitations: no limitations History of Present Illness Date Seen by Provider: Jul 12, 2018 Time Seen by Provider: 08:19 Initial Comments Patient presents to ER by private conveyance with her significant other who is interpreting Qatari to Nepali for her. She is a with a last menstrual period sometime in March putting her around exchange weeks who presents with a last 2 days of having some small amounts of spotting bleeding. She does not really any worse today but she has 2 miscarriages and she is worried that this was happening today. She has an appointment with an OB doctor at [facility] in 9 days. She states her periods are irregular at best. She's having no dysuria fevers chills abdominal pain cramping, right upper abdominal pain, double vision blurry vision or spots. She denies having any problems with previous pregnancies. All of her pregnancies were vaginal. She does not smoke or drink. She has no other significant medical problems. Allergies and Home Medications Allergies Coded Allergies: No Known Drug Allergies (Unverified , 08/29/15) Home Medications Cefdinir 300 Mg Capsule, 300 MG PO BID Prescribed by: MOMO WHITTAKER on 10/04/17 1553 Docusate Sodium 100 Mg Capsule, 100 MG PO BID PRN for CONSTIPATION-1ST LINE Prescribed by: MOMO WHITTAKER on 10/04/17 1059 Ferrous Sulfate 325 Mg Tablet, 325 MG PO BID Prescribed by: MOMO WHITTAKER on 10/04/17 1059 Hydrocodone Bit/Acetaminophen 1 Each Tablet, 1 EACH PO Q6H PRN for PAIN- MODERATE TO SEVERE Prescribed by: MOMO WHITTAKER on 10/04/17 1059 Ibuprofen 600 Mg Tablet, 600 MG PO Q6H PRN for PAIN-MILD TO MODERATE Prescribed by: MOMO WHITTAKER on 10/04/17 1059 Vit W-Ca,Fe,FA(<1 mg) 1 Each Tablet, 1 EACH PO DAILY, (Reported) Patient Home Medication List Home Medication List Reviewed: Yes Review of Systems Review of Systems Constitutional: No chills, No diaphoresis EENTM: No hearing loss, No blurred vision Respiratory: No cough, No short of breath Cardiovascular: No chest pain, No palpitations Gastrointestinal: No abdominal pain, No constipation, No diarrhea, No nausea Genitourinary: denies burning, denies dysuria : Yes LMP: March 16, 2018 Musculoskeletal: No back pain, No joint pain Past Kzcwoxg-Uznkcd-Eapyix Hx Patient Social History Alcohol Use: Denies Use Recreational Drug Use: No Smoking Status: Never a Smoker Recent Hopitalizations: No Immunizations Up To Date Tetanus Booster (TDap): Less than 5yrs Date of Influenza Vaccine: Sep 29, 2017 Seasonal Allergies Seasonal Allergies: No Past Medical History Surgeries: No Respiratory: No Cardiac: No Neurological: No Sexually Transmitted Disease: No HIV/AIDS: No Genitourinary: No Gastrointestinal: No Musculoskeletal: No Endocrine: No HEENT: No Cancer: No Psychosocial: No Integumentary: No Blood Disorders: No Adverse Reaction/Blood Tranf: No Family Medical History Patient reports no known family medical history. No Pertinent Family Hx Physical Exam Vital Signs Vital Signs - First Documented 07/12/18 08:43 Temp 98.8 Pulse 66 Resp 16 B/P (MAP) 112/68 (83) Pulse Ox 100 O2 Delivery Room Air Capillary Refill : Height, Weight, BMI Height: 4'10.00" Weight: 164lbs. 0.4oz. 74.669389fz; 34.3 BMI Method:Estimated General Appearance: WD/WN, no apparent distress HEENT: PERRL/EOMI, normal ENT inspection Neck: non-tender, normal inspection Cardiovascular: normal peripheral pulses, regular rate, rhythm Respiratory: chest non-tender, lungs clear, normal breath sounds, no respiratory distress, no accessory muscle use Gastrointestinal: normal bowel sounds, non tender, soft Pelvic: normal external exam, vaginal bleeding, other (parous normal-appearing cervix with thin mucus secretions that are blood-tinged. No clots, membranes or products of conception noted.) Neurologic/Psychiatric: alert, normal mood/affect, oriented x 3 Progress/Results/Core Measures Suspected Sepsis SIRS Temperature: Pulse: Respiratory Rate: Laboratory Tests 07/12/18 08:33: White Blood Count 6.5 Blood Pressure / Mean: Laboratory Tests 07/12/18 08:33: Platelet Count 280 Results/Orders Lab Results Laboratory Tests Test 07/12/18 08:33 Range/Units White Blood Count 6.5 4.3-11.0 10^3/uL Red Blood Count 4.30 L 4.35-5.85 10^6/uL Hemoglobin 11.8 11.5-16.0 G/DL Hematocrit 35 35-52 % Mean Corpuscular Volume 81 80-99 FL Mean Corpuscular Hemoglobin 27 25-34 PG Mean Corpuscular Hemoglobin Concent 34 32-36 G/DL Red Cell Distribution Width 14.6 H 10.0-14.5 % Platelet Count 280 130-400 10^3/uL Mean Platelet Volume 9.6 7.4-10.4 FL Neutrophils (%) (Auto) 60 42-75 % Lymphocytes (%) (Auto) 30 12-44 % Monocytes (%) (Auto) 9 0-12 % Eosinophils (%) (Auto) 1 0-10 % Basophils (%) (Auto) 0 0-10 % Neutrophils # (Auto) 3.9 1.8-7.8 X 10^3 Lymphocytes # (Auto) 2.0 1.0-4.0 X 10^3 Monocytes # (Auto) 0.6 0.0-1.0 X 10^3 Eosinophils # (Auto) 0.1 0.0-0.3 10^3/uL Basophils # (Auto) 0.0 0.0-0.1 10^3/uL Urine Color YELLOW Urine Clarity SLIGHTLY CLOUDY Urine pH 7 5-9 Urine Specific [place] 1.010 L 1.016-1.022 Urine Protein 1+ H NEGATIVE Urine Glucose (UA) NEGATIVE NEGATIVE Urine Ketones NEGATIVE NEGATIVE Urine Nitrite NEGATIVE NEGATIVE Urine Bilirubin NEGATIVE NEGATIVE Urine Urobilinogen NORMAL NORMAL MG/DL Urine Leukocyte Esterase 3+ H NEGATIVE Urine RBC (Auto) 5+ H NEGATIVE Urine RBC 10-25 H /HPF Urine WBC 5-10 H /HPF Urine Squamous Epithelial Cells 5-10 /HPF Urine Crystals NONE /LPF Urine Amorphous Sediment RARE SHANNON URATES H /LPF Urine Bacteria FEW H /HPF Urine Casts NONE /LPF Urine Mucus NEGATIVE /LPF Urine Culture Indicated YES Human Chorionic Gonadotropin, Quant 1848 H <5 MIU/ML My Orders Orders - ANGUS MILLER Cbc With Automated Diff (07/12/18 08:23) Hcg,Quantitative (07/12/18 08:23) Ua Culture If Indicated (07/12/18 08:23) Urine Culture (07/12/18 08:33) Us Ob Single Fetus<14 [id number] (07/12/18 09:05) Vital Signs/I&O 07/12/18 08:43 Temp 98.8 Pulse 66 Resp 16 B/P (MAP) 112/68 (83) Pulse Ox 100 O2 Delivery Room Air Capillary Refill : Progress Note : Time: 08:31 Progress Note Patient's not had any care yet so we'll start with a urine place a test , urinalysis and we'll check a CBC to check her hemoglobin levels as well as a quantitative hCG. She's not having any pain and she's not really sure of her last menstrual. So the quantitative will be difficult to interpret by itself without a repeat quantitative. Diagnostic Imaging Diagonstic Imaging: Ultrasound Plain Films/CT/US/NM/MRI: pelvis (OB transvaginal) Comments Blighted ovum with a sac consistent with 9 weeks. [email or web address] [place], [place] NAME: CARLA TRAN [facility] REC#: [id number] PT STATUS: REG ER : 1985 PHYSICIAN: ANGUS MILLER MD ADMIT DATE: 07/12/18/ER Draft Date of Exam:07/12/18 US OB SINGLE FETUS<14 [id number] PROCEDURE: US OB SINGLE FETUS <14 WKS. TECHNIQUE: Multiple real-time grayscale images were obtained over the gravid uterus in various projections. INDICATION: Vaginal bleeding. Beta-hCG of 1000. Patient reports approximately 15 weeks . COMPARISON: None FINDINGS: There is a gestational sac in uterus which has a mean sac diameter of 4.1 cm, corresponding with 9 weeks and 5 days. No pole or yolk sac is seen. No uterine masses are identified. No free fluid is seen. The right and left ovaries are not visualized. No adnexal masses are seen. IMPRESSION: 1. Empty gestational sac measuring at 9 weeks and 5 days, most consistent with a blighted ovum. The bilateral ovaries are not seen. Dictated on workstation # [id number] Dict: 07/12/18 0954 Trans: 07/12/18 1004 LUIS [id number] Interpreted by: JENNIFER RODRIGUEZ MD Electronically signed by: Reviewed: Reviewed by Me Departure Communication (PCP) Discussed the case with Dr. Whittaker and she will see that the patient gets in a follow-up appointment in the next 2-3 days. Impression Primary Impression: Inevitable complete miscarriage without complication Disposition: 01 HOME, SELF-CARE Condition: Stable Departure-Patient Inst. Decision time for Depature: 10:30 Referrals: DARRICK CHAVEZ,LOCAL PHYSICIAN (PCP) Primary Care Physician Patient Instructions: Miscarriage (DC) Add. Discharge Instructions: You're having a miscarriage. It is not unusual for the next few days to have some bleeding and passing of small eusebia of tissue. There is maybe accompanied by cramping abdominal pain which is normal. You can use Tylenol 1000 mg every 8 hours and/or ibuprofen 800 mg every 8 hours as needed. Heat and sits baths may also be helpful. If the pain is unbearable or he have worsening bleeding you may return to the ER for reevaluation. Call [facility] and get an appointment within the next 2-3 days to be followed up make sure everything progressing appropriately. Copy Copies To 1: DARRICK CHAVEZ TITUS J Jul 12, 2018 08:30
[2018-07-12 08:43] LABS: BILIRUBIN,URINE NEGATIVE (NEGATIVE); CLARITY,URINE SLIGHTLY CLOUDY; COLOR,URINE YELLOW; GLUCOSE, URINE (UA) NEGATIVE (NEGATIVE); KETONES,URINE NEGATIVE (NEGATIVE); LEUKOCYTE ESTERASE ,URINE 3+ (NEGATIVE); NITRITE,URINE NEGATIVE (NEGATIVE); PH,URINE 7 (5-9); PROTEIN,URINE 1+ (NEGATIVE); UROBILINOGEN,URINE NORMAL (NORMAL)
[2018-07-12 08:44] LABS: BASOPHILS % (AUTO) 0 % (0-10); EOSINOPHILS # (AUTO) 0.1 10^3/uL (0.0-0.3); EOSINOPHILS % (AUTO) 1 % (0-10); HEMATOCRIT 35 % (35-52); HEMOGLOBIN 11.8 G/DL (11.5-16.0); LYMPHOCYTES % (AUTO) 30 % (12-44); MEAN CORPUSCULAR HEMOGLOBIN 27 PG (25-34); MEAN CORPUSCULAR HGB CONC 34 G/DL (32-36); MEAN CORPUSCULAR VOLUME 81 FL (80-99); MEAN PLATELET VOLUME 9.6 FL (7.4-10.4); MONOCYTES # (AUTO) 0.6 X 10^3 (0.0-1.0); MONOCYTES % (AUTO) 9 % (0-12); NEUTROPHILS # (AUTO) 3.9 X 10^3 (1.8-7.8); NEUTROPHILS % (AUTO) 60 % (42-75); PLATELET COUNT 280 10^3/uL (130-400); RED CELL DISTRIBUTION WIDTH 14.6 % (10.0-14.5); WHITE BLOOD COUNT 6.5 10^3/uL (4.3-11.0)
[2018-07-12 08:51] LABS: AMORPHOUS SEDIMENT,UR RARE AMOR URATES /LPF; BACTERIA,URINE FEW /HPF
--- NOTE | 2018-07-12 10:04 | Diagnostic Imaging Report ---
PROCEDURE: US OB SINGLE FETUS <14 WKS. TECHNIQUE: Multiple real-time grayscale images were obtained over the gravid uterus in various projections. INDICATION: Vaginal bleeding. Beta-hCG of 1000. Patient reports approximately 15 weeks . COMPARISON: None FINDINGS: There is a gestational sac in uterus which has a mean sac diameter of 4.1 cm, corresponding with 9 weeks and 5 days. No pole or yolk sac is seen. No uterine masses are identified. No free fluid is seen. The right and left ovaries are not visualized. No adnexal masses are seen. IMPRESSION: 1. Empty gestational sac measuring at 9 weeks and 5 days, most consistent with a blighted ovum. The bilateral ovaries are not seen. Dictated by: Dictated on workstation # [id number]
[2018-07-12 10:45] VITALS: BP 110/68
[2018-07-29] MEDS ORDERED: IBUP-1773 PO (08:52)
[2018-07-29] MEDS ORDERED: HYDR-4226 PO (08:52)
== END 2018-07-12 10:45 | disposition home or self-care (01) ==
LOC: EDUNIT# 08:11 → ER 08:13
DX: O03.9 Complete or unspecified spontaneous abortion without complication (principal); Z3A.15 15 weeks gestation of pregnancy; Z87.59 Personal history of other complications of pregnancy, childbirth and the puerperium
CPT/HCPCS: 36415; 76801; 81000; 84702; 85025; 87088

== ENCOUNTER 2018-07-28 15:39 | Outpatient (CLI) | payer SELFPAY ==
[~2018-07-28] VITALS: Ht 152.4 cm; Wt 57.2 kg
[2018-07-28] MEDS ORDERED: IBUP-1780 PO (16:21)
[2018-07-28] MEDS ORDERED: ACET-93 PO (16:21)
[2018-07-29] MEDS ORDERED: HYDR-4226 PO (08:52)
[2018-07-29] MEDS ORDERED: IBUP-1773 PO (08:52)
== END 2018-07-28 16:18 | disposition home or self-care (01) ==
LOC: PREOP 15:39
PROVIDERS: ATTEND Obstetrics & Gynecology
DX: Z01.818 Encounter for other preprocedural examination (principal)

== ENCOUNTER 2018-07-29 07:37 | Day surgery (SDC) | payer OTHER ==
[~2018-07-29] VITALS: Ht 152.4 cm; Wt 57.2 kg
[~2018-07-29 07:37] MED LIST changes: +ACET-93 PO; +IBUP-1780 PO
--- OUTSIDE RECORDS SUMMARY | 2018-07-29 07:41 | XMS REPORT | Continuity of Care Document ---
Author Author [facility] Organization [facility] Address Unknown Phone Unavailable Allergies Active Description Code Type Severity Reaction Onset Reported/Identified Relationship to Patient Clinical Status Yes No Known Drug Allergies [id number] Drug Allergy Unknown N/A 03/23/2013 Medications There is no data. Problems Date Dx Coded Attending Type Code Diagnosis Diagnosed By 03/23/2013 AMBER BARFIELD, JULIET Jose Ot 599.0 URIN TRACT INFECTION NOS 03/23/2013 JULIET CLARK MD Ot 616.10 VAGINITIS NOS 03/23/2013 AMBER BARFIELD, JULIET Jose Ot 623.8 NONINFLAM DIS VAGINA NEC 03/23/2013 AMBER BARFIELD, JULIET Jose Ot 640.03 THREATEN ABORT-ANTEPART 03/23/2013 JULIET CLARK MD Ot 646.63 INFECTION-ANTEPARTUM 03/23/2013 AMBER BARFIELD, JULIET Jose Ot 656.13 RH ISOIMMUNIZAT-ANTEPART 03/23/2013 JULIET CLARK MD Ot V07.2 PROPHYLACT IMMUNOTHERAPY Procedures There is no data. Results There is no data. Encounters ACCT No. Visit Date/Time Discharge Status Pt. Type Provider Facility Loc./Unit Complaint [id number] 03/23/2013 17:24:00 03/23/2013 22:57:00 DIS Emergency JULIET CLARK MD [facility] ER
[2018-07-29 08:00] VITALS: BP 104/67
[2018-07-29] MEDS ORDERED: proPOfol 200 MG/20 ML (DIPRIVAN) VIAL IV ONE (08:07)
[2018-07-29] MEDS ORDERED: LIDOCAINE PF 2% 2 ML (XYLOCAINE) VIAL ONE (08:08)
[2018-07-29] MEDS ORDERED: MIDAZOLAM 2 MG/2 ML (VERSED) VIAL ONE (08:09)
[2018-07-29] MEDS ORDERED: fentaNYL INJECTION 100 MCG/2 ML AMP ONE (08:09)
[2018-07-29] MEDS ORDERED: ONDANSETRON 4 MG/2 ML (SDV) Z0FRAN ONE (08:10)
[2018-07-29 08:30] LABS: BASOPHILS % (AUTO) 0 % (0-10); EOSINOPHILS # (AUTO) 0.1 10^3/uL (0.0-0.3); EOSINOPHILS % (AUTO) 2 % (0-10); HEMATOCRIT 35 % (35-52); HEMOGLOBIN 11.9 G/DL (11.5-16.0); LYMPHOCYTES % (AUTO) 35 % (12-44); MEAN CORPUSCULAR HEMOGLOBIN 28 PG (25-34); MEAN CORPUSCULAR HGB CONC 34 G/DL (32-36); MEAN CORPUSCULAR VOLUME 82 FL (80-99); MEAN PLATELET VOLUME 9.8 FL (7.4-10.4); MONOCYTES # (AUTO) 0.5 X 10^3 (0.0-1.0); MONOCYTES % (AUTO) 9 % (0-12); NEUTROPHILS % (AUTO) 54 % (42-75); PLATELET COUNT 254 10^3/uL (130-400); RED BLOOD COUNT 4.32 10^6/uL (4.35-5.85); RED CELL DISTRIBUTION WIDTH 14.4 % (10.0-14.5); WHITE BLOOD COUNT 5.6 10^3/uL (4.3-11.0)
[2018-07-29] MEDS ORDERED: BUPIVACAINE 0.5% 30 ML (SENSORCAINE) VIAL ONE (08:41)
[2018-07-29] MEDS ORDERED: MIDAZOLAM 2 MG/2 ML (VERSED) VIAL IV ONE (08:45)
[2018-07-29] MEDS ORDERED: D5 LR IV SOLUTION 1,000 ML IV SCH (08:50)
--- NOTE | 2018-07-29 08:50 | Progress Note-Pre Operative ---
Pre-Operative Progress Note H&P Reviewed The H&P was reviewed, patient examined and no changes noted. Date Seen by Provider: Jul 29, 2018 Time Seen by Provider: 08:49 Date H&P Reviewed: Jul 29, 2018 Time H&P Reviewed: 08:45 Pre-Operative Diagnosis: Missed YANA Sanchez DO Jul 29, 2018 8:50 am
--- NOTE | 2018-07-29 08:51 | Discharge Inst-Women's Service ---
Discharge Inst-Women's Serv Depart Medication/Instructions New, Converted or Re-Newed RX: RX on Chart Consults/Follow Up Additional Follow Up: Yes Orders/Referrals Dr. Hill in 3 weeks Activity Activity: Activity as Tolerated Driving Instructions: No Driving for 1 Week NO SMOKING: NO SMOKING Nothing Inside Vagina: No Douching, No [place], No Tampons Diet Discharge Diet: No Restrictions Symptoms to Report to : Bleeding Excessive, Pain Increased, Fever Over 101 Degrees F, Vaginal Bleeding Increase, Questions/Concerns For Any Problems or Questions: Contact Your Physician YANA HILL DO Jul 29, 2018 8:51 am
[2018-07-29] MEDS ORDERED: IBUP-1773 PO (08:52)
[2018-07-29] MEDS ORDERED: HYDR-4226 PO (08:52)
[2018-07-29] MEDS ORDERED: KETOROLAC 30 MG/ML VIAL IVP ONE (09:00)
[2018-07-29] MEDS ORDERED: LACTATED RINGERS 1,000 ML IV PRN (09:00)
[2018-07-29] MEDS ORDERED: ONDANSETRON 4 MG/2 ML (SDV) Z0FRAN IVP PRN (09:00)
[2018-07-29] MEDS ORDERED: DEXAMETHASONE 10 MG/ML (DECADRON) 1 ML VIAL ONE (09:24)
[2018-07-29] MEDS ORDERED: SEVOFLURANE (ULTANE) 15 ML INHAL SOLN ONE (09:26)
[2018-07-29] MEDS ORDERED: KETOROLAC 30 MG/ML VIAL ONE (09:29)
--- NOTE | 2018-07-29 10:32 | Anesthesia-General Post-Op ---
General Patient Condition Mental Status/LOC: Same as Preop Cardiovascular: Satisfactory Nausea/Vomiting: Absent Respiratory: Satisfactory Pain: Controlled Complications: Absent Post Op Complications Complications None Follow Up Care/Instructions Patient Instructions None needed. Anesthesia/Patient Condition Patient Condition Patient is doing well, no complaints, stable vital signs, no apparent adverse anesthesia problems. No complications reported per nursing. BETTY KATHLEEN CRNA Jul 29, 2018 10:32
[2018-07-29 10:35] VITALS: BP 100/69
[2018-07-29 11:05] VITALS: BP 100/58
[2018-07-29] MEDS ORDERED: HYDROcodone/APAP 5 MG/325 MG (LORTAB) TAB PO ONE (11:30)
[2018-07-29 11:35] VITALS: BP 104/60
--- NOTE | 2018-07-29 13:51 | OPERATIVE REPORT ---
DATE OF SERVICE: PREOPERATIVE DIAGNOSIS: A 32-year-old female with missed AB. POSTOPERATIVE DIAGNOSIS: A 32-year-old female with missed AB. PROCEDURE: Suction D and C. SURGEON: Yana Hill DO. ANESTHESIA: General endotracheal. ESTIMATED BLOOD LOSS: 200 mL. URINE OUTPUT: 200 mL. FLUIDS: 600 mL lactated Ringer solution. FINDINGS: An approximately 8 to 10 week size uterus, grossly normal appearing cervix and external female genitalia. SPECIMEN SENT: Products of conception. INDICATIONS FOR PROCEDURE: This 32-year-old female has a consultation in my office from the emergency room after finding of a blighted ovum, absence of fetus within the gestational sac. This was well within into 8 to 10 weeks due to beta hCG levels being in the 30,000. Due to this, we discussed waiting for spontaneous miscarriage versus proceeding with suction D and C. The patient is opting to proceed with suction D and C, both for convenience sake and to continue on with her life and not have to wait anymore. Risks of the procedure were discussed with the patient in detail and with her present and after all their questions were answered, consent was obtained. The patient was taken to the operating room. OPERATIVE REPORT IN DETAIL: Once in the operating room and general anesthesia was found to be adequate, she was placed in dorsal lithotomy, prepped and draped in a normal sterile fashion. A weighted speculum was inserted in the patient's vagina after the bladder was emptied using straight catheterization. A right angle retractor was used to visualize the cervix, which was grasped at the 12 o'clock position using a long Allis clamp. I then gently sounded the uterine cavity, it was found to be 8 cm and I gently dilated the cervix using the Hegar dilators to a maximum dilatation of 8 mm at which point, I selected a #8 rigid Ian curette and I placed this in the uterine cavity. I attached the Cortez suction device and wait for suction to reach a maximum pressure of 55 mmHg, at which point I methodically on several passes cleared the endometrial cavity by rotating the rigid curette. Once this was done on several passes and no more tissue was coming out, I then proceeded with a gentle light curettage using a medium size endometrial curette. Once a very mild uterine cry was noted, I then proceeded with one final pass using the Ian curette and there was minimal to no bleeding noted at that point as well as no tissue being passed at that point, at which point I removed all the instruments from the patient's vagina. The patient tolerated the procedure well and sent to the recovery area in stable condition. Lap and sponge counts were correct at the end of the procedure. Instrument counts correct as well. Job ID: [id number] DocumentID: [id number] Dictated Date: 07/29/2018 11:47:54 Edge Sander Date: 07/29/2018 13:50:54 Dictated By: YANA HILL DO
== END 2018-07-29 11:45 | disposition home or self-care (01) ==
LOC: SDC 07:37
PROVIDERS: ATTEND Obstetrics & Gynecology
DX: O02.1 Missed abortion (principal)
CPT/HCPCS: 36415; 85025; 86850; 86900; 86901; 87081

== ENCOUNTER → 2021-02-07 | Outpatient (CLI) | payer OTHER ==
[~2021-02-07] MED LIST changes: +HYDR-4226 PO
--- NOTE | 2021-02-07 12:09 | Diagnostic Imaging Report ---
INDICATION: Threatened . There is marked abnormal appearance within the endometrium. 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 No definite parts are identified. No definite invasion of the myometrium is detected. Adnexa are unremarkable apart from a 2.3 cm right ovarian cyst. IMPRESSION: Thickening with mixed solid and cystic components to the endometrium, suggestive of gestational trophoblastic disease. Correlation with beta hCG levels is recommended. No definite parts are detected. Dictated by: Dictated on workstation # [id number]
== END ==
LOC: RAD 10:35
PROVIDERS: ATTEND Obstetrics & Gynecology
DX: O20.0 Threatened abortion (principal); Z3A.00 Weeks of gestation of pregnancy not specified
CPT/HCPCS: 76801; 76817

== ENCOUNTER 2021-02-08 06:45 | Day surgery (SDC) | payer SELFPAY ==
[~2021-02-08] VITALS: Ht 152 cm; Wt 61.9 kg
[2021-02-08] VITALS (11 sets, daily range): BP systolic 89–101; BP diastolic 52–59
[2021-02-08] MEDS ORDERED: proPOfol 200 MG/20 ML (DIPRIVAN) VIAL IV ONE (07:54)
[2021-02-08] MEDS ORDERED: ONDANSETRON 4 MG/2 ML (SDV) Z0FRAN ONE (07:54)
[2021-02-08] MEDS ORDERED: MIDAZOLAM 2 MG/2 ML (VERSED) VIAL ONE (07:55)
[2021-02-08] MEDS ORDERED: SEVOFLURANE (ULTANE) 15 ML INHAL SOLN ONE ×3 (07:56→09:48)
[2021-02-08] MEDS ORDERED: fentaNYL INJ 100 MCG/2 ML AMP ONE (07:56)
[2021-02-08] MEDS ORDERED: LIDOCAINE PF 2% 5 ML (XYLOCAINE) VIAL ONE (07:56)
[2021-02-08] MEDS ORDERED: LACTATED RINGERS 1,000 ML IV PRN (08:15)
[2021-02-08 08:30] LABS: BASOPHILS % (AUTO) 0 % (0-10); EOSINOPHILS # (AUTO) 0.1 10^3/uL (0.0-0.3); EOSINOPHILS % (AUTO) 2 % (0-10); HEMATOCRIT 36 % (35-52); HEMOGLOBIN 11.5 g/dL (11.5-16.0); LYMPHOCYTES # (AUTO) 1.6 10^3/uL (1.0-4.0); LYMPHOCYTES % (AUTO) 24 % (12-44); MEAN CORPUSCULAR HEMOGLOBIN 28 pg (25-34); MEAN CORPUSCULAR HGB CONC 32 g/dL (32-36); MEAN CORPUSCULAR VOLUME 85 fL (80-99); MEAN PLATELET VOLUME 9.6 fL (9.0-12.2); MONOCYTES # (AUTO) 0.6 10^3/uL (0.0-1.0); MONOCYTES % (AUTO) 9 % (0-12); NEUTROPHILS # (AUTO) 4.3 10^3/uL (1.8-7.8); NEUTROPHILS % (AUTO) 65 % (42-75); PLATELET COUNT 262 10^3/uL (130-400); WHITE BLOOD COUNT 6.6 10^3/uL (4.3-11.0)
--- NOTE | 2021-02-08 08:40 | Progress Note-Pre Operative ---
Pre-Operative Progress Note H&P Reviewed The H&P was reviewed, patient examined and no changes noted. Date Seen by Provider: Feb 08, 2021 Time Seen by Provider: 07:50 Date H&P Reviewed: Feb 08, 2021 Time H&P Reviewed: 07:45 Pre-Operative Diagnosis: Molar , Missed Ab FENECHYANA DO Feb 08, 2021 08:40
--- NOTE | 2021-02-08 08:42 | Discharge Inst-Women's Service ---
Discharge Inst-Women's Serv Depart Medication/Instructions New, Converted or Re-Newed RX: RX on Chart Final Diagnosis PO Suction D and C Problems Reviewed?: Yes Consults/Follow Up Additional Follow Up: Yes Orders/Referrals Dr. Hill in 7-10 days Activity Activity: Activity as Tolerated Driving Instructions: No Driving for 1 Week NO SMOKING: NO SMOKING Nothing Inside Vagina: No Douching, No [place], No Tampons Diet Discharge Diet: No Restrictions Symptoms to Report to : Bleeding Excessive, Pain Increased, Fever Over 101 Degrees F, Vaginal Bleeding Increase, Questions/Concerns For Any Problems or Questions: Contact Your Physician YANA HILL DO Feb 08, 2021 08:42
[2021-02-08] MEDS ORDERED: ACHD5005 PO (08:43)
[2021-02-08] MEDS ORDERED: IBUP-1773 PO (08:43)
[2021-02-08] MEDS ORDERED: HYDROcodone/APAP 5 MG/325 MG (LORTAB) TAB PO PRN (08:45)
[2021-02-08] MEDS ORDERED: ONDANSETRON 4 MG/2 ML (SDV) Z0FRAN IVP PRN ×2 (08:45→10:00)
[2021-02-08] MEDS ORDERED: KETOROLAC 30 MG/ML VIAL IVP ONE (08:45)
[2021-02-08] MEDS ORDERED: D5 LR IV SOLUTION 1,000 ML IV SCH (08:45)
[2021-02-08] MEDS ORDERED: METHYLERGONOVINE 0.2 MG/ML (METHERGINE) AMP ONE (09:08)
[2021-02-08] MEDS ORDERED: PHENYLEPHRINE 100 MCG/ML 10 ML (ANESTHESIA) SYR ONE (09:48)
[2021-02-08] MEDS ORDERED: HYDROmorphone 2 MG/ML VIAL (DILAUDID) IV ONE (10:00)
[2021-02-08] MEDS ORDERED: KETOROLAC 30 MG/ML VIAL ONE (10:34)
--- NOTE | 2021-02-08 16:23 | OPERATIVE REPORT ---
DATE OF SERVICE: PREOPERATIVE DIAGNOSIS: 1. A 35-year-old female with suspected molar on ultrasound. 2. Missed . POSTOPERATIVE DIAGNOSES: 1. A 35-year-old female with suspected molar on ultrasound. 2. Missed . PROCEDURE: Suction D and C. SURGEON: Yana Hill DO ANESTHESIA: General endotracheal. ESTIMATED BLOOD LOSS: 200 mL. URINE OUTPUT: 25 mL clear drained at the start of the procedure. FLUIDS: 500 mL lactated Ringer's solution. FINDINGS: Grossly normal-appearing external female genitalia, moderate amount of products of conception. SPECIMEN SENT: Products of conception. INDICATIONS FOR PROCEDURE: This 35-year-old female is a patient who presented to my office on with breakthrough bleeding, spotting and a positive test. A stat ultrasound was ordered and findings were consistent with a complete molar . I discussed with the patient the concerns with this, the concerns of bleeding, concerns of possible gestational trophoblastic disease and progression to carcinoma. Risks of the procedure was reviewed with the patient in detail as well as the indications and the need for the procedure. The patient was demonstrated understanding, although there were some difficulties and interpreting this specific situation as it is fairly rare with the patient given the language barrier; however, we did reach a understanding. The patient was agreeable and understood to her satisfaction including her . After all her questions were answered, consent was obtained in the preoperative area, the patient was taken to the operating room. OPERATIVE REPORT IN DETAIL: Once in the operating room, anesthesia was found to be adequate, placed in dorsal lithotomy position, prepped and draped in normal sterile fashion. Timeout was performed. A weighted speculum inserted to the patient's vagina. The bladder was then drained using straight catheterization. A right angle retractor was used to visualize the cervix, which was grasped at 12 o'clock position using a long Allis clamp. I then sound the uterine cavity, depth was found to have a depth of 8 cm. I then selected an 8 cm Hanover suction device and I dilated the cervix using Hanks dilators to allow placement of the suction device into the uterine cavity. Once this was done Hanover suction device was attached to the Ian suction, which reaches a suction of 60 mmHg, at which point, I made several passes of the endometrial cavity clearing all of the endometrial cavity of all products of conception. This was done on several different passes until a full adequate evacuation of the endometrium is performed. I then performed a gentle curettage with a sharp curette and again a gentle uterine cry is noted. There was no evidence of retained products of conception after which there was no active bleeding noted from the cervix. The patient tolerated the procedure well and sent to recovery in stable condition. Lap and sponge counts were correct at the end of the procedure. Instrument counts correct as well. All instruments were removed from the patient at the end of procedure. Job ID: [id number] DocumentID: [id number] Dictated Date: 02/08/2021 09:51:22 Project Administrator Date: 02/08/2021 16:22:26 Dictated By: YANA HILL DO
== END 2021-02-08 11:50 ==
LOC: SDC 06:45
PROVIDERS: ATTEND Obstetrics & Gynecology
DX: O02.1 Missed abortion (principal); E11.9 Type 2 diabetes mellitus without complications; Z83.3 Family history of diabetes mellitus
CPT/HCPCS: 36415; 85025; 86850; 86900; 86901; 87081